=== PATIENT | female | born 1975 | race Caucasian/White ===

== ENCOUNTER 2017-01-25 14:47 | Outpatient (CLI) | payer OTHER ==
[~2017-01-25] VITALS: Ht 157.5 cm; Wt 128.6 kg
[~2017-01-25 14:47] MED LIST: DULO30CA45 PO; GEMF600T60 PO; LEVO25TA53 PO; UDTEG GTB
[2017-01-25 14:49] VITALS: BP 127/69; PULSE 89; RESP 18; Ht 157.5 cm; Wt 128.6 kg
--- NOTE | 2017-01-25 18:37 | PN ---
Date/Time of Note Date/Time of Note DATE: 01/25/17 TIME: 18:32 Assessment/Plan Assessment/Plan Assessment/Plan [facility] Progress Note Date of Service: 01/25/17 Today's Impression & Plan: Overall doing well with likely a hepatocellular adenoma. Requires ongoing surveillance (agreed upon in multidisciplinary tumor board as well). With above assessment, I've recommended the following for today: 1. Liver CT in late March/early Apr 2017 2. F/u with us afterwards 3. Sig change in lifestyle with goal of getting BMI below 24 4. Avoid hormone therapy if possible; at minimum, have a multidisciplinary discussion to include hepatology and HPB surgery Thank you again for your great care of this very pleasant patient and wonderful family. If there are any questions, please feel free to call me at [phone]. TOTAL VISIT TIME: 20 minutes of which more than half was spent in [id number] discussion with the patient, possibly including family, as well as coordination of care between multiple physicians and providers. Disclaimer: Inadvertent spelling or grammatical errors are likely due to EHR/ dictation software use and do not reflect on the overall quality of patient care. Updated Clinical Summary: A very pleasant 41-year-old lady without significant prior known past medical history other than BMI 51.9 (previously 47.13 May 2016, 51.3 2015), with approximately a 3.3 cm hepatocellular adenoma of segment 8 of liver, diagnosed after being admitted through the emergency department to [facility] on 05/20/2016 with pulmonary and cardiac concerns which were subsequently resolved but an incidentally discovered lesion in segment 8 of her liver. S/p biopsy 05/23/2016 percutaneously with benign findings. No history of hepatitis in the past. Family history unknown (patient immigrated to the country [place] she was very young and she does not know her family from the country of origin). No prior known issues with her biliary system or major medical or surgical issues other than her BMI. No previous jaundice, changes in bladder or bowel habits, bleeding, or other major difficulties. Not on hormone therapy. Comorbidities 1. BMI 51.3 2. Hypercholesterolemia 3. Hypothyroidism 4. GERD 5. Atypical chest pain; negative stress test Jun 2016 6. HTN 7. S/p liver percutaneous biopsy 05/23/16 with diagnosis of adenoma (3 cm lesion in caudate lobe of the liver) Subjective: No major events or complaints; no abd pain; no n/v/d; no sob or cp; + flatus; + BM and normal; + activity Objective: Vitals: See below Exam: GENERAL: On exam, the patient was sitting in a chair and appeared to be comfortable and in no acute distress. ABDOMEN: Soft, nontender and nondistended. There are no peritoneal signs or guarding. SKIN: Skin appears to be pink and feels warm to touch. NEUROLOGIC: Patient is awake, alert, and follows commands appropriately. Exam/Review of Systems Vital Signs Vitals Vital Signs Date Time Temp Pulse Resp B/P Pulse Ox O2 Delivery O2 Flow Rate FiO2 01/25/17 14:49 97.8 89 18 127/69 93 Room Air MALLORIE JEWELL M.D. January 25, 2017 18:37
== END 2017-01-25 15:18 | disposition home or self-care (01) ==
LOC: HPC 14:47
PROVIDERS: ATTEND Transplant Surgery
DX: D13.4 Benign neoplasm of liver (principal); K21.9 Gastro-esophageal reflux disease without esophagitis
CPT/HCPCS: G0463